=== PATIENT | female | born 1980 | race Caucasian/White ===

== ENCOUNTER 2020-02-21 04:57 | Observation (INO) | payer SELFPAY ==
[2020-02-21] MEDS ORDERED: Ondansetron 4 MG/2 ML SDV IVPUSH ONE (05:25)
[2020-02-21] MEDS ORDERED: HYDROmorphone 0.5 MG/0.5 ML Syringe IVPUSH ONE (05:25)
--- NOTE | 2020-02-21 05:28 | EDM.PDOC ---
<Wolfgang Mckinley - Last Filed: 02/21/20 06:48> ED HPI GENERAL MEDICAL PROBLEM - General Chief Complaint: Abdominal Pain Stated Complaint: ABD PAIN Time Seen by Provider: 02/21/20 05:20 Source of Information: Reports: Patient History Limitations: Reports: No Limitations - History of Present Illness INITIAL COMMENTS - FREE TEXT/NARRATIVE: 39-year-old generally healthy female who has had epigastric and right upper quadrant pain for the past 2 days. It seems to be worse when she is lying down. Also having some nausea and vomiting, no fevers or chills or urinary symptoms. No history of abdominal surgeries. It seems to be better if she keeps her stomach full of food. Patient started some Prilosec 2 days ago but she is not improving. Onset: Gradual Duration: Day(s): (2 to 3 days) Location: Reports: Abdomen (Upper abdomen) Associated Symptoms: Reports: Loss of Appetite, Malaise, Nausea/Vomiting. 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 Denies: Fever, Chills HEENT: Reports: No Symptoms Respiratory: Reports: No Symptoms Cardiovascular: Denies: Chest Pain GI/Abdominal: Reports: Abdominal Pain, Nausea, Vomiting. Denies: Constipation, Diarrhea : Reports: No Symptoms Musculoskeletal: Reports: Back Pain (Some pain radiating to the back) Skin: Reports: No Symptoms Neurological: Reports: No Symptoms ED EXAM, GI/ABD - Physical Exam Exam: See Below Exam Limited By: No Limitations General Appearance: Alert, No Apparent Distress (Looks uncomfortable but not distressed) Eyes: Bilateral: Normal Appearance (No jaundice) Head: Atraumatic Respiratory/Chest: No Respiratory Distress, Lungs Clear Cardiovascular: Regular Rate, Rhythm GI/Abdominal Exam: Normal Bowel Sounds, Soft, Tender (She is tender in the epigastric and right upper quadrant with guarding in the right upper quadrant typical of a [place] sign) Extremities: Normal Inspection Neurological: Alert, Oriented Psychiatric: Normal Affect, Normal Mood Skin Exam: Warm, Dry Course - Re-Assessments/Exams Free Text/Narrative Re-Assessment/Exam: 02/21/20 05:28 An IV was started, patient will be hydrated with 500 cc of normal saline an hour and she was given 0.5 mg of IV Dilaudid and 4 mg of IV Zofran. CBC, CMP and lipase were obtained. 02/21/20 06:31 CBC is normal, CMP and lipase are also relatively normal including all liver enzymes and alk phos. I reexamined the patient and she still having significant right upper quadrant tenderness, so gallbladder ultrasound was ordered. We also collected a UA. 02/21/20 06:48 Care was turned over to Dr. Carlson pending gallbladder ultrasound. Departure - Departure Disposition: Admitted As Inpatient 65 Clinical Impression: Biliary colic - Discharge Information Referrals: PCP,None [Primary Care Provider] - Forms: ED Department Discharge Sepsis Event Note (ED) - Evaluation Sepsis Screening Result: No Definite Risk <Reginald Carlson - Last Filed: 02/21/20 08:45> Course - Vital Signs Text/Narrative:: Case discussed with Dr. Read @ [facility], recommends admission and cholecystectomy tomorrow after some IV Unasyn. Wants hospitalist to admit. Last Recorded V/S: Last Vital Signs Temp 36.8 C 02/21/20 05:11 Pulse 72 02/21/20 07:03 Resp 15 02/21/20 07:03 BP 117/63 02/21/20 07:03 Pulse Ox 98 02/21/20 07:03 - Orders/Labs/Meds Orders: Active Orders 24 hr Category Date Time Status Abdomen Ltd [US] Stat Exams 02/21/20 06:31 Taken Ampicillin/Sulbactam Na [Unasyn] 3 gm Med 02/21/20 07:45 Active Sodium Chloride 0.9% [Normal Saline] 100 ml IV Q6H Sodium Chloride 0.9% [Normal Saline] 1,000 ml Med 02/21/20 05:30 Active IV ASDIRECTED Medication Orders Sodium Chloride (Normal Saline) 1,000 mls @ 500 mls/hr IV ASDIRECTED RICHARD Last Admin: 02/21/20 05:36 Dose: 500 mls/hr Documented by: JUDITH Ampicillin Sodium/Sulbactam (Sodium 3 gm/ Sodium Chloride) 100 mls @ 200 mls/hr IV Q6H RICHARD Last Admin: 02/21/20 07:54 Dose: 200 mls/hr Documented by: MARIIA Labs: Laboratory Tests 02/21/20 02/21/20 02/21/20 Range/Units 05:34 05:34 06:11 WBC 7.5 (4.5-11.0) K/uL RBC 4.76 (3.30-5.50) M/uL Hgb 14.4 (12.0-15.0) g/dL Hct 43.8 (36.0-48.0) % MCV 92 (80-98) fL MCH 30 (27-31) pg MCHC 33 (32-36) % Plt Count 279 (150-400) K/uL Neut % (Auto) 61 (36-66) % Lymph % (Auto) 29 (24-44) % [place] % (Auto) 6 (2-6) % Eos % (Auto) 3 (2-4) % Baso % (Auto) 0 (0-1) % Sodium 139 L (140-148) mmol/L Potassium 3.9 (3.6-5.2) mmol/L Chloride 106 (100-108) mmol/L Carbon Dioxide 25 (21-32) mmol/L Anion Gap 11.9 (5.0-14.0) mmol/L BUN 10 (7-18) mg/dL Creatinine 0.9 (0.6-1.0) mg/dL Est Cr Clr Drug Dosing 68.73 mL/min Estimated GFR (MDRD) > 60 (>60) Glucose 110 H (74-106) mg/dL Calcium 8.3 L (8.5-10.1) mg/dL Total Bilirubin 0.5 (0.2-1.0) mg/dL AST 15 (15-37) U/L ALT 28 (12-78) U/L Alkaline Phosphatase 75 (46-116) U/L Total Protein 6.9 (6.4-8.2) g/dL Albumin 3.5 (3.4-5.0) g/dL Globulin 3.4 (2.3-3.5) g/dL Albumin/Globulin Ratio 1.0 L (1.2-2.2) Lipase 97 (73-393) U/L Urine Color Yellow (YELLOW) Urine Appearance Clear (CLEAR) Urine pH 5.5 (5.0-8.0) Ur Specific [place] 1.015 (1.008-1.030) Urine Protein Negative (NEGATIVE) mg/dL Urine Glucose (UA) Negative (NEGATIVE) mg/dL Urine Ketones Negative (NEGATIVE) mg/dL Urine Occult Blood Trace-lysed H (NEGATIVE) Urine Nitrite Negative (NEGATIVE) Urine Bilirubin Negative (NEGATIVE) Urine Urobilinogen 0.2 (0.2-1.0) EU/dL Ur Leukocyte Esterase Negative (NEGATIVE) Urine RBC Not seen (0-5) Urine WBC Not seen (0-5) Ur Epithelial Cells Few Amorphous Sediment Rare Urine Bacteria Not seen Urine Mucus Not seen Meds: Medications Generic Name Dose Route Start Last Admin Trade Name Freq PRN Reason Stop Dose Admin Sodium Chloride 1,000 mls @ 500 mls/hr 02/21/20 05:30 02/21/20 05:36 Normal Saline IV 500 mls/hr ASDIRECTED RICHARD Administration Ampicillin Sodium/Sulbactam 100 mls @ 200 mls/hr 02/21/20 07:45 02/21/20 07:54 Sodium 3 gm/ Sodium Chloride IV 200 mls/hr Q6H RICHARD Administration Discontinued Medications Generic Name Dose Route Start Last Admin Trade Name Freq PRN Reason Stop Dose Admin Hydromorphone HCl 0.5 mg 02/21/20 05:25 02/21/20 05:36 Dilaudid IVPUSH 02/21/20 05:26 0.5 mg ONETIME ONE Administration Ondansetron HCl 4 mg 02/21/20 05:25 02/21/20 05:36 Zofran IVPUSH 02/21/20 05:26 4 mg ONETIME ONE Administration - Radiology Interpretation Free Text/Narrative:: GB ultrasound-1.8 cm stone near the neck, some wall thickening. - Re-Assessments/Exams Free Text/Narrative Re-Assessment/Exam: 02/21/20 07:38 Still having some pain, rates 4/10. Departure - Departure Time of Disposition: 08:55 Condition: Fair - Discharge Information *PRESCRIPTION DRUG MONITORING PROGRAM REVIEWED*: Not Applicable *COPY OF PRESCRIPTION DRUG MONITORING REPORT IN PATIENT DIANE: Not Applicable Sepsis Event Note (ED) - Focused Exam Vital Signs: Vital Signs Temp Pulse Resp BP Pulse Ox 02/21/20 07:03 72 15 117/63 98 02/21/20 05:11 36.8 C 67 18 140/83 98 02/21/20 05:10 36.8 C 67 18 140/83 98 - My Orders Last 24 Hours: My Active Orders 02/21/20 07:45 Ampicillin/Sulbactam Na [Unasyn] 3 gm Sodium Chloride 0.9% [Normal Saline] 100 ml IV Q6H - Assessment/Plan Last 24 Hours: My Active Orders 02/21/20 07:45 Ampicillin/Sulbactam Na [Unasyn] 3 gm Sodium Chloride 0.9% [Normal Saline] 100 ml IV Q6H
[2020-02-21] MEDS ORDERED: Sodium Chloride 0.9% 1,000 ML IV SCH (05:30)
[2020-02-21] MEDS ORDERED: Ampicillin/Sulbactam Na 3 GM in Sodium Chloride 0.9% 100 ML IV SCH (07:45)
--- NOTE | 2020-02-21 09:13 | PCM.HP.2 ---
H&P History of Present Illness - General Date of Service: 02/21/20 Admit Problem/Dx: Admission Diagnosis/Problem Admission Diagnosis/Problem Biliary colic Source of Information: Patient, Provider History Limitations: Reports: No Limitations - History of Present Illness Initial Comments - Free Text/Narative: CC: My belly hurt so bad HPI: Pamela presents to the emergency room today with 2 days of progressive right upper quadrant abdominal pain. Last night she had severe and sharp pain in the right upper quadrant that woke her from sleep around 2 AM. Pain has been relatively constant since then though it has started to decrease after some IV pain medication. She has had similar but not as intense pain over the past 2 days. She did try taking omeprazole thinking maybe it was acid reflux/indigestion but this did not help. No obvious triggers to make the pain better. She has been eating a bland diet but this does not seem to be helping. She has had nausea as well as vomiting. No reports of fevers. No history of similar episodes in the past. No change in bowel or bladder habits. No complaints of shortness of breath. No sick contacts or travel. Work-up in the emergency room revealed normal laboratory studies. An ultrasound of the right upper quadrant revealed a 1.8 cm gallstone at the neck of the gallbladder and mild findings of cholecystitis. She has received antibiotics. She will be admitted with the plan for surgical intervention tomorrow. 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 Pertinent positives and negatives are noted in the history of present illness. All other systems were reviewed and were negative except as noted. Exam - Exam Exam: See Below - Vital Signs Vital Signs: Last Vital Signs Temp 36.8 C 02/21/20 05:11 Pulse 72 02/21/20 07:03 Resp 15 02/21/20 07:03 BP 117/63 02/21/20 07:03 Pulse Ox 98 02/21/20 07:03 Weight: 94.5 kg - Exam Quality Assessment: No: Supplemental Oxygen General: Alert, Oriented, Cooperative. No: Mild Distress HEENT: Conjunctiva Clear, Mucosa Moist & [place]. No: Scleral Icterus Neck: Supple, Trachea Midline Lungs: Clear to Auscultation, Normal Respiratory Effort Cardiovascular: Regular Rate, Regular Rhythm GI/Abdominal Exam: Normal Bowel Sounds, Soft, Non-Tender, No Distention. No: Guarding Back Exam: Normal Inspection, Full Range of Motion Extremities: No Pedal Edema. No: Increased Warmth Peripheral Pulses: 2+: Dorsalis Pedis (L), Dorsalis Pedis (R) Skin: Warm, Dry Neuro Extensive - Mental Status: Alert, Oriented x3, Nl Response to Commands Neuro Extensive - Motor, Sensory, Reflexes: No: Dysarthria, Abnormal Motor, Tremor Psychiatric: Alert, Normal Affect - Patient Data Lab Results Last 24 hrs: Laboratory Results - last 24 hr 02/21/20 02/21/20 02/21/20 Range/Units 05:34 05:34 06:11 WBC 7.5 (4.5-11.0) K/uL RBC 4.76 (3.30-5.50) M/uL Hgb 14.4 (12.0-15.0) g/dL Hct 43.8 (36.0-48.0) % MCV 92 (80-98) fL MCH 30 (27-31) pg MCHC 33 (32-36) % Plt Count 279 (150-400) K/uL Neut % (Auto) 61 (36-66) % Lymph % (Auto) 29 (24-44) % [place] % (Auto) 6 (2-6) % Eos % (Auto) 3 (2-4) % Baso % (Auto) 0 (0-1) % Sodium 139 L (140-148) mmol/L Potassium 3.9 (3.6-5.2) mmol/L Chloride 106 (100-108) mmol/L Carbon Dioxide 25 (21-32) mmol/L Anion Gap 11.9 (5.0-14.0) mmol/L BUN 10 (7-18) mg/dL Creatinine 0.9 (0.6-1.0) mg/dL Est Cr Clr Drug Dosing 68.73 mL/min Estimated GFR (MDRD) > 60 (>60) Glucose 110 H (74-106) mg/dL Calcium 8.3 L (8.5-10.1) mg/dL Total Bilirubin 0.5 (0.2-1.0) mg/dL AST 15 (15-37) U/L ALT 28 (12-78) U/L Alkaline Phosphatase 75 (46-116) U/L Total Protein 6.9 (6.4-8.2) g/dL Albumin 3.5 (3.4-5.0) g/dL Globulin 3.4 (2.3-3.5) g/dL Albumin/Globulin Ratio 1.0 L (1.2-2.2) Lipase 97 (73-393) U/L Urine Color Yellow (YELLOW) Urine Appearance Clear (CLEAR) Urine pH 5.5 (5.0-8.0) Ur Specific [place] 1.015 (1.008-1.030) Urine Protein Negative (NEGATIVE) mg/dL Urine Glucose (UA) Negative (NEGATIVE) mg/dL Urine Ketones Negative (NEGATIVE) mg/dL Urine Occult Blood Trace-lysed H (NEGATIVE) Urine Nitrite Negative (NEGATIVE) Urine Bilirubin Negative (NEGATIVE) Urine Urobilinogen 0.2 (0.2-1.0) EU/dL Ur Leukocyte Esterase Negative (NEGATIVE) Urine RBC Not seen (0-5) Urine WBC Not seen (0-5) Ur Epithelial Cells Few Amorphous Sediment Rare Urine Bacteria Not seen Urine Mucus Not seen Result Diagrams: 02/21/20 05:34 02/21/20 05:34 Imaging Impressions Last 24 hrs: RUQ US-images personally reviewed-there is a large 1.9 cm gallstone at the neck of the gallbladder. there is some mild wall thickening. mild pericholecystic fluid. Sepsis Event Note - Evaluation Sepsis Screening Result: No Definite Risk - Focused Exam Vital Signs: Vital Signs Temp Pulse Resp BP Pulse Ox 02/21/20 07:03 72 15 117/63 98 07/15/20 05:11 36.8 C 67 18 140/83 98 02/21/20 05:10 36.8 C 67 18 140/83 98 Date Exam was Performed: 02/21/20 Time Exam was Performed: 13:09 *Q Meaningful Use (ADM) - VTE Risk Assess *Q Each Risk Factor Represents 1 Point: Obesity ( BMI > 25 kg/m2) Total Score 1 Point Risk Factors: 1 Each Risk Factor Represents 2 Points: Laparoscopic surgery greater than 45 minutes Total Score 2 Point Risk Factors: 2 Each Risk Factor Represents 3 Points: None Total Score 3 Point Risk Factors: 0 Each Risk Factor Represents 5 Points: None Total Score 5 Point Risk Factors: 0 Venous Thromboembolism Risk Factor Score *Q: 3 - Problem List (1) Biliary colic SNOMED Code(s): 29053293 ICD Code: K80.50 - CALCULUS OF BILE DUCT W/O CHOLANGITIS OR CHOLECYST W/O OBST Status: Acute Current Visit: Yes (2) Tobacco dependence SNOMED Code(s): 04189378 ICD Code: F17.200 - NICOTINE DEPENDENCE, UNSPECIFIED, UNCOMPLICATED Status: Chronic Current Visit: Yes Problem List Initiated/Reviewed/Updated: Yes Orders Last 24hrs: Active Orders 24 hr Category Date Time Status Patient Status Manage Transfer [TRANSFER] Routine ADT 02/21/20 09:05 Ordered Abdomen Ltd [US] Stat Exams 02/21/20 06:31 Taken Ampicillin/Sulbactam Na [Unasyn] 3 gm Med 02/21/20 07:45 Active Sodium Chloride 0.9% [Normal Saline] 100 ml IV Q6H Sodium Chloride 0.9% [Normal Saline] 1,000 ml Med 02/21/20 05:30 Active IV ASDIRECTED Resuscitation Status Routine Resus Stat 02/21/20 09:06 Ordered Medication Orders Sodium Chloride (Normal Saline) 1,000 mls @ 500 mls/hr IV ASDIRECTED RICHARD Last Admin: 02/21/20 05:36 Dose: 500 mls/hr Documented by: JUDITH Ampicillin Sodium/Sulbactam (Sodium 3 gm/ Sodium Chloride) 100 mls @ 200 mls/hr IV Q6H RICHARD Last Admin: 02/21/20 07:54 Dose: 200 mls/hr Documented by: MARIIA Assessment/Plan Comment:: ASSESSMENT AND PLAN - Cholelithiasis with biliary colic-increasing pain over the past 2 days. Labs are normal. Ultrasound showed a large stone at the neck of the gallbladder. Patient appears to be very low risk and is healthy. No previous abdominal surgeries. I think she is medically optimized for the surgery. -Empiric antibiotic coverage with Amp/sulbactam -Surgical consultation for cholecystectomy tomorrow -Symptomatic management of nausea and vomiting as well as pain -Gentle IV fluids overnight Tobacco dependence-encourage cessation Maintenance issues - - DVT prophylaxis -mechanical - GI prophylaxis -not indicated - Nutrition -full liquids today, n.p.o. after midnight - Mcdaniels catheter -not indicated CODE STATUS -full code Admission justification -patient will be referred observation status for symptomatic management and surgical intervention Disposition -I would anticipate discharge home after the hospital stay Mike Gaytan M.D. - Mortality Measure Prognosis:: Good
--- NOTE | 2020-02-21 09:38 | US ---
Abdomen Ltd CLINICAL HISTORY: Right upper quadrant pain COMPARISON: None. TECHNIQUE: Real-time images were obtained through the right upper quadrant. FINDINGS: The liver is free of mass or biliary dilatation. Echotexture appears normal.. The gallbladder contains a 1.9 cm stone in the lower portion of the neck. Gallbladder wall measures 4 mm. There was no pain on scanning over the gallbladder. The common bile duct measures 5 mm. The pancreas is of mass is seen. Tail is obscured. The right kidney has a normal appearance. The IVC is normal. IMPRESSION: Cholelithiasis Borderline gallbladder wall thickening. There is no pericholecystic fluid. This may be chronic
[2020-02-21] MEDS ORDERED: LORazepam 2 MG/ML SDV IVPUSH PRN (09:54)
[2020-02-21] MEDS ORDERED: Ondansetron 4 MG/2 ML SDV IV PRN ×2 (09:54→10:24)
[2020-02-21] MEDS ORDERED: Ondansetron 4 MG Tab.DIS PO PRN (09:54)
[2020-02-21] MEDS ORDERED: Acetaminophen 325 MG Tab PO PRN (09:54)
[2020-02-21] MEDS ORDERED: oxyCODONE 5 MG Tab PO PRN (09:54)
[2020-02-21] MEDS ORDERED: HYDROmorphone 0.5 MG/0.5 ML Syringe IVPUSH PRN (10:03)
[2020-02-21] MEDS ORDERED: HYDROmorphone/Normal Saline 15 MG/30 ML PCA IV PRN (10:28)
[2020-02-21] MEDS ORDERED: Dextrose 5%-Lactated Ringers 1,000 ML IV SCH (10:30)
[2020-02-21] MEDS ORDERED: Naloxone 0.4 MG/ML SDV IV PRN (11:00)
[2020-02-21] MEDS: Pantoprazole 40 MG Vial IV SCH (11:59)
[2020-02-21] MEDS: Ampicillin/Sulbactam Na 3 GM in Sodium Chloride 0.9% 100 ML IV SCH ×2 (13:46→20:39)
[2020-02-21] MEDS ORDERED: Lactated Ringers 1,000 ML IV SCH (23:59)
[2020-02-22] MEDS: Ampicillin/Sulbactam Na 3 GM in Sodium Chloride 0.9% 100 ML IV SCH ×4 (02:58→19:40)
[2020-02-22] MEDS ORDERED: Bupivacaine 0.5%/EPINEPHrine 1:200,000 50 ML MDV ONE (06:43)
[2020-02-22] MEDS ORDERED: Meropenem 500 MG SDV ONE (06:43)
[2020-02-22] MEDS ORDERED: Succinylcholine 200 MG/10 ML MDV ONE (07:16)
[2020-02-22] MEDS ORDERED: Neostigmine Methylsulfate 1 MG/ML 5 ML Syringe ONE (07:16)
[2020-02-22] MEDS ORDERED: Rocuronium 50 MG/5 ML Vial ONE (07:16)
[2020-02-22] MEDS ORDERED: Propofol 200 MG/20 ML SDV ONE (07:16)
[2020-02-22] MEDS ORDERED: Dexamethasone 4 MG/ML SDV ONE (07:16)
[2020-02-22] MEDS ORDERED: Glycopyrrolate 0.2 MG/ML 5 ML MDV ONE (07:16)
[2020-02-22] MEDS ORDERED: Ondansetron 4 MG/2 ML SDV ONE (07:16)
[2020-02-22] MEDS ORDERED: fentaNYL 250 MCG/5 ML SDV ONE (07:17)
--- NOTE | 2020-02-22 08:19 | PN ---
DATE OF SERVICE: 02/22/2020 SUBJECTIVE: Pamela is n.p.o. She will be having a laparoscopic cholecystectomy today. She reports she has had no pain since she has been in the hospital, and vital signs have been stable. She has been afebrile. REVIEW OF SYSTEMS: Remainder of review of systems negative for any pertinent positives and negatives. OBJECTIVE: GENERAL: Pamela Viveros is a pleasant 39-year-old female. VITAL SIGNS: TPR at 0704 is 96.7, 59, 16, and blood pressure 111/66. HEENT: Negative. NECK: Supple. HEART: Regular rate and rhythm. LUNGS: Clear. ABDOMEN: Negative. Minimal tenderness in the right upper quadrant. EXTREMITIES: Without peripheral edema. ASSESSMENT: 1. Acute cholecystitis and cholelithiasis. 2. Nicotine dependence. PLAN: Remain n.p.o., and after preoperative evaluation and discussion of possible risks and possible complications, the patient wishes to proceed with surgical procedure, a laparoscopic possible open cholecystectomy. Questions were answered. We will evaluate p.r.n. or in the a.m. Shira Lopez PA-C /[id number]
[2020-02-22] MEDS ORDERED: Ketamine 500 MG/5 ML MDV IV SCH (08:45)
[2020-02-22] MEDS ORDERED: fentaNYL 100 MCG/2 ML SDV ONE (09:07)
[2020-02-22] MEDS ORDERED: Lactated Ringers 1,000 ML ONE (09:08)
[2020-02-22] MEDS ORDERED: Labetalol 20 MG/4 ML Syringe ONE (09:21)
[2020-02-22] MEDS ORDERED: fentaNYL 100 MCG/2 ML SDV IVPUSH ONE (09:57)
[2020-02-22] MEDS: Dextrose 5%-Lactated Ringers 1,000 ML IV SCH ×2 (10:52→22:01)
[2020-02-22] MEDS: HYDROmorphone 1 MG/ML Syringe IV PRN ×3 (10:58→19:39)
[2020-02-22] MEDS: Pantoprazole 40 MG Vial IV SCH (13:06)
[2020-02-22] MEDS: Acetaminophen/HYDROcodone 325-5 MG Tab PO PRN ×3 (14:16→22:01)
[2020-02-23] MEDS: Ampicillin/Sulbactam Na 3 GM in Sodium Chloride 0.9% 100 ML IV SCH ×2 (02:09→07:22)
[2020-02-23] MEDS: Acetaminophen/HYDROcodone 325-5 MG Tab PO PRN ×3 (02:09→09:00)
--- NOTE | 2020-02-23 09:15 | DISCH ---
ADMISSION DIAGNOSES: 1. Acute cholecystitis and cholelithiasis. 2. Tobacco dependence. DISCHARGE DIAGNOSIS: Laparoscopic cholecystectomy and repair of incarcerated umbilical hernia. POSTOPERATIVE DIAGNOSES: 1. Subacute cholecystitis and cholelithiasis. 2. Incarcerated umbilical hernia. The date of procedure, 02/22/2020. Surgeon: Pedro Read MD. HISTORY: Pamela Viveros presented to the emergency room with abdominal pain on 02/21/2020. She was admitted to the hospital and scheduled for the above surgery on 02/22/2020. She had no operative complications. On postoperative day #1, her activity was good. Oral intake adequate at 1850 mL. Urine output 3050. PRICE put out 30 mL of a light red drainage. Pain was controlled, vital signs stable, and she was able to be discharged to home. PHYSICAL EXAMINATION: GENERAL: Pamela Viveros is a pleasant 39-year-old female. VITAL SIGNS: Height is 5 feet 2.99 inches. Weight is 208 pounds. TPR at 0334, 97.2, 67, 18, blood pressure 126/66. HEENT: Negative. NECK: Supple. HEART: Regular rate and rhythm. LUNGS: Clear. ABDOMEN: Dressing dry and intact. PRICE drain is intact as above and will be removed prior to surgery. Abdominal binder is on. EXTREMITIES: Without peripheral edema. DISPOSITION: Discharged home. CONDITION: Stable and improving. FOLLOWUP APPOINTMENT: Shira Lopez PA-C, on 03/01/2020 at 9:00 a.m. HOME MEDICATIONS: [place] 5/325 mg 1 tablet every 6 hours p.r.n. pain, #28; milk of magnesia 30 mL, 2 doses were sent home with the patient, to take 1 daily p.r.n. constipation. DIET: Usual diet as tolerated. Drink 8 to 10 glasses of water a day. ACTIVITY: No lifting greater than 10 pounds for 2 weeks. OTHER ACTIVITY: Walk 6 times inside your home a day. Driving: Do not drive for 1 week and while on pain medication. Shower/bathing: May shower. Keep operative site clean and dry. Wear abdominal binder for 2 weeks and then as tolerated. Notify provider if any fever, increased pain, swelling, redness, nausea, or vomiting. SPECIAL INSTRUCTION: Use incentive spirometer 10 times every hour while awake for 1 week.
[2020-02-23] MEDS ORDERED: Magnesium Hydroxide 400 MG/5 ML Susp 30 ML Cup PO PRN (09:27)
--- NOTE | 2020-02-25 11:30 | OR ---
DATE OF PROCEDURE: 02/22/2020 SURGEON: Pedro Read MD PREOPERATIVE DIAGNOSIS: Subacute and chronic cholecystitis and cholelithiasis. POSTOPERATIVE DIAGNOSES: 1. Subacute and chronic cholecystitis and cholelithiasis. 2. Incarcerated umbilical hernia. OPERATIVE PROCEDURES: Diagnostic laparoscopy with: 1. Laparoscopic cholecystectomy (59366). 2. Repair of incarcerated umbilical hernia (59879). ANESTHESIA: General. [employer] CONTROLS ENGINEER: Shira Lopez PA-C INDICATIONS FOR PROCEDURE: This is a 39-year-old female, presenting with a picture of subacute cholecystitis. She was admitted yesterday. Plan is to proceed with laparoscopically or if necessary open cholecystectomy. Potential risks of the procedure were reviewed as outlined in yesterday's admission note and the patient wishes to proceed. DETAILS OF PROCEDURE: The patient was taken to the operating room and placed in a supine position. After general endotracheal anesthesia was induced, the abdomen was prepped and draped. A transverse epigastric incision was made and the peritoneal cavity entered under direct vision with an Optiview trocar, inflated to 15 mmHg pressure with CO2. Laparoscope was then reinserted. No underlying trocar insertion site injuries were seen. Following this, the laparoscope was then directed down toward the umbilicus. The patient was noted to have an umbilical hernia present. This contained some incarcerated preperitoneal fat. Transverse infraumbilical incision was made and the peritoneal cavity was then entered via the hernia defect. This displaced the preperitoneal fat out of the area of incarceration and this was then used for the camera port. One additional 5 mm trocar in the right subcostal area was then placed as well. The gallbladder was noted to be quite edematous and distended. On subsequent dissection, there was a fair bit of fat necrosis present between the gallbladder and the liver bed consistent with this being at least a subacute cholecystitis. Initially, the gallbladder was retracted anterolaterally, dissection began on the gallbladder neck, then continued around the gallbladder neck cystic duct junction. Once that area as well as the adjacent cystic artery were well delineated, both structures were clipped 3 times proximally, once distally, and then gallbladder neck and cystic duct junction and cystic artery were divided, and the gallbladder was then dissected off the gallbladder bed. There were some additional vascular attachments to the neck of the gallbladder which were clipped as well and dissection continued with removal of the gallbladder off the gallbladder bed. This was delivered through the epigastric trocar site. The patient was noted to have a single roughly grape-sized gallstone which was given to the patient. The area of dissection was inspected. There was fair bit of edema present, and given this, a Chi-Graham drain was placed through the right lateral trocar site and positioned in the area of the gallbladder fossa. The camera was then brought back up through the epigastric port and the trocar at the umbilical site was then removed. The umbilical hernia was then closed with series of 0 Vicryl sutures placed with closure of the hernia with transverse orientation. The sutures were placed such that the preperitoneal fat was displaced outside of the hernia allowing a position. Once these were in place, the epigastric trocar site was removed after CO2 was evacuated. Site was closed at the fascia with 0 Vicryl stitch as well. Skin was closed with some 4-0 Vicryl skin stitch. Dressing applied. The patient was taken to the recovery room in satisfactory condition. Prior to closure, bilateral subcostal transversus abdominis plane blocks were placed and the incision was also anesthetized with 1% lidocaine mixed with Marcaine. Physician financial sales assistant, Shira Lopez, played an essential role in assisting in this case, helping to position the patient, retract structures as needed, as well as suturing and cutting sutures when indicated. Her presence improved patient safety and decreased operative time. Pedro Read MD /[id number] MTDD
--- NOTE | 2020-02-25 12:42 | HP ---
This is a 39-year-old admitted with what appeared to be a subacute and chronic cholecystitis. Upon imaging, she has a stone lodged in the neck of the gallbladder with some significant gallbladder edema and a fair bit of tenderness in the right upper quadrant. Liver function tests are not suggestive of any common bile duct obstruction. After examination and discussion, the plan will be to proceed with admission of the patient. We will re-initiate some IV antibiotics and then plan to proceed with a laparoscopic or if necessary open cholecystectomy tomorrow. Potential risks of that procedure including bleeding, infection, injury to underlying viscera, problems with stones migrating to the common bile duct were all reviewed, and the patient wishes to proceed. The patient was setup for a laparoscopic cholecystectomy tomorrow morning. Pedro Read MD /[id number]
== END 2020-02-23 10:00 | disposition home or self-care (01) ==
LOC: JP.ED 04:57 → JP.MS 09:05
PROVIDERS: ADMIT Internal Medicine; ATTEND Internal Medicine
DX: K80.12 Calculus of gallbladder with acute and chronic cholecystitis without obstruction (principal); K42.0 Umbilical hernia with obstruction, without gangrene; K21.9 Gastro-esophageal reflux disease without esophagitis; F17.210 Nicotine dependence, cigarettes, uncomplicated
CPT/HCPCS: 36415; 47562; 49653; 76705; 80053; 81001; 82247; 83690; 83735; 84075; 84100; 85025; 85027; 87635; 88304; 96361; 96365; 96375; 96376; 99285; A9270; C9113; G0378; J0171; J0295; J0330; J1100; J1170; J2405; J2704; J2710; J2795; J3010; J3490; J7030; J7050; J7120; J7121; 99284; J2185; U0002

== ENCOUNTER 2023-01-24 08:39 | Emergency (ER) | payer BC ==
[2023-01-24] MEDS ORDERED: HYDROmorphone 0.5 MG/0.5 ML Syringe IVPUSH ONE ×2 (09:16→10:32)
[2023-01-24] MEDS ORDERED: Ondansetron 4 MG/2 ML SDV IVPUSH ONE (09:16)
[2023-01-24] MEDS ORDERED: Sodium Chloride 0.9% 10 ML Syringe FLUSH PRN (09:16)
[2023-01-24 09:25] LABS: BASOPHILS ABSOLUTE AUTO 0.05 K/uL (0.00-0.10); BASOPHILS PERCENT AUTO 0.7 % (0.1-1.3); EOSINOPHILS ABSOLUTE AUTO 0.18 K/uL (0.00-0.40); EOSINOPHILS PERCENT AUTO 2.5 % (0.0-5.4); HEMATOCRIT 43.7 % (34.3-46.0); HEMOGLOBIN 14.7 g/dL (11.2-15.5); IMMATURE GRAN ABSOLUTE AUTO 0.02 K/uL (0.00-0.23); IMMATURE GRAN PERCENT AUTO 0.3 % (0.0-0.7); LYMPHOCYTES ABSOLUTE AUTO 2.33 K/uL (0.8-3.3); LYMPHOCYTES PERCENT AUTO 32.5 % (11.4-47.7); MEAN CORPUSCULAR HEMOGLOBIN 29.8 pg (31.6-35.5); MEAN CORPUSCULAR HGB CONC 33.6 g/dL (31.6-35.5); MEAN CORPUSCULAR VOLUME 88.6 fL (81.4-99.0); MONOCYTES ABSOLUTE AUTO 0.43 K/uL (0.20-0.90); NEUTROPHILS ABSOLUTE AUTO 4.16 K/uL (1.0-7.6); PLATELET COUNT,PLT 339 K/uL (130-375); RED BLOOD CELL COUNT 4.93 M/uL (3.77-5.24); WHITE BLOOD CELL COUNT,WBC 7.2 K/uL (3.2-11.0)
[2023-01-24] MEDS ORDERED: Ketorolac 30 MG/ML SDV IVPUSH ONE (09:25)
[2023-01-24] MEDS ORDERED: Sodium Chloride 0.9% 1,000 ML IV ONE (09:25)
[2023-01-24 09:43] LABS: APPEARANCE,URINE CLEAR (CLEAR); BILIRUBIN,URINE NEGATIVE (NEGATIVE); COLOR,URINE YELLOW (YELLOW); GLUCOSE,URINE NEGATIVE (NEGATIVE); KETONES,URINE NEGATIVE (NEGATIVE); LEUKOCYTE ESTERASE,URINE NEGATIVE (NEGATIVE); NITRITE,URINE NEGATIVE (NEGATIVE); OCCULT BLOOD,URINE TRACE-INTACT (NEGATIVE); PH,URINE 5.5 (5.0-8.0); PROTEIN,URINE NEGATIVE (NEGATIVE); UROBILINOGEN,URINE 0.2 EU/dL (0.2-1.0)
[2023-01-24 09:48] LABS: ALANINE AMINOTRANSFERASE,ALT 37 U/L (12-78); ALBUMIN 3.7 g/dL (3.4-5.0); ALKALINE PHOSPHATASE 89 U/L (46-116); ASPARTATE AMNIOTRANSFERASE,AST 18 U/L (15-37); BILIRUBIN TOTAL 0.5 mg/dL (0.2-1.0); BLOOD UREA NITROGEN,BUN 15 mg/dL (7-18); CALCIUM 8.7 mg/dL (8.5-10.1); CARBON DIOXIDE,CO2 26 mmol/L (21-32); CHLORIDE,CL 103 mmol/L (100-108); ESTIMATED GFR 72 mL/min (>60); GLUCOSE RANDOM 119 mg/dL (74-106); POTASSIUM,K 4.2 mmol/L (3.6-5.2); PROTEIN TOTAL,TP 7.5 g/dL (6.4-8.2); SODIUM,NA 138 mmol/L (140-148)
[2023-01-24 09:51] LABS: C-REACTIVE PROTEIN 0.11 mg/dL (0.0-0.3)
[2023-01-24 09:51] LABS: AMORPHOUS SEDIMENT,URINE NOT SEEN; BACTERIA,URINE FEW; EPITHELIAL CELLS,URINE MODERATE; MUCUS,URINE MODERATE; WBC,URINE 0-5 (0-5)
[2023-01-24 09:52] LABS: ANION GAP 13.2 mmol/L (5.0-14.0)
[2023-01-24] MEDS ORDERED: Prochlorperazine 10 MG/2 ML SDV IVPUSH ONE (11:32)
[2023-01-24] MEDS ORDERED: droPERidol 5 MG/2 ML SDV IVPUSH ONE (11:32)
== END 2023-01-24 12:45 | disposition home or self-care (01) ==
LOC: JP.ED 08:39
DX: N13.2 Hydronephrosis with renal and ureteral calculous obstruction (principal); N28.1 Cyst of kidney, acquired; Z90.49 Acquired absence of other specified parts of digestive tract
CPT/HCPCS: 36415; 74176; 80053; 81001; 81025; 83690; 85025; 86140; 96361; 96374; 96375; 99284; J1170; J1790; J1885; J2405; J3490; J7030

== ENCOUNTER 2024-10-09 17:22 | Emergency (ER) | payer BC, OTHER | END 2024-10-09 18:35 | disposition home or self-care (01) | LOC: JP.ED 17:22 | DX: S93.491A Sprain of other ligament of right ankle, initial encounter (principal); Z90.49 Acquired absence of other specified parts of digestive tract; X58.XXXA Exposure to other specified factors, initial encounter | CPT/HCPCS: 73610-26-RT; 73610-RT; 99283 ==

== ENCOUNTER 2024-12-07 09:10 | Day surgery (SDC) | payer OTHER ==
[~2024-12-07 09:10] MED LIST: Midazolam 1 MG/ML 2 ML SDV ONE; Propofol 200 MG/20 ML SDV ONE; fentaNYL 100 MCG/2 ML SDV ONE
[2024-12-07] MEDS: Lactated Ringers 1,000 ML IV SCH (10:07)
== END 2024-12-07 12:10 | disposition home or self-care (01) ==
LOC: JP.SDS 09:10
PROVIDERS: ATTEND Surgery
DX: Z12.11 Encounter for screening for malignant neoplasm of colon (principal)
CPT/HCPCS: 45378; 81025; J2250; J2704; J3010; J7120; 00812-QZ